=== PATIENT | female | born 1960 | race Caucasian/White ===

== ENCOUNTER → 2018-04-15 | Outpatient (CLI) | payer OTHER ==
[~2018-04-15] MED LIST: ANTIVERT25 MG PO; CEPHALEXIN 500500 M3 PO; IBUPROFEN 400400 M1 PO; LEVOTHYROXINE0.05 MG PO; ONDANSETRON HCL4 M2 PO; TYLENOL COLD &1 EACH PO; ZANTAC 150MG T150 MG PO
== END ==
LOC: M.RAD 14:35
DX: Z12.31 Encounter for screening mammogram for malignant neoplasm of breast (principal); M85.89 Other specified disorders of bone density and structure, multiple sites; E03.9 Hypothyroidism, unspecified; Z78.0 Asymptomatic menopausal state

== ENCOUNTER → 2018-04-22 | Outpatient (CLI) | payer OTHER | LOC: M.CT 13:53 | DX: Z13.6 Encounter for screening for cardiovascular disorders (principal) ==

== ENCOUNTER 2019-04-21 21:57 | Emergency (ER) | payer OTHER ==
[~2019-04-21] VITALS: Ht 160 cm; Wt 77.1 kg
[2019-04-21] MEDS ORDERED: PRILOSEC OTC20 MG PO (22:08)
[2019-04-21] MEDS ORDERED: ZPAK PO (22:08)
[2019-04-21] MEDS ORDERED: EFFEXOR XR37.5 MG PO (22:10)
[2019-04-21 22:37] LABS: INFLUENZA A ANTIGEN Negative (Negative); INFLUENZA B ANTIGEN Negative (Negative)
[2019-04-21 22:45] LABS: ABSOLUTE LYMPHOCYTES 1.7 thou/uL (0.8-5.3); ABSOLUTE MONOCYTES 0.4 thou/uL (0.0-1.2); BASOPHILS 0.7 %; EOSINOPHILS 0.5 %; HEMATOCRIT 36.7 % (37.0-47.0); HEMOGLOBIN 12.8 gm/dL (12.0-15.0); LYMPHOCYTES 41.3 %; MCH 29.8 pg (26.0-34.0); MCV 85.2 fL (80.0-100.0); MPV 9.1 fl. (7.2-11.1); NUCLEATED RBCS 0 /100WBC; PLATELET COUNT* 181 thou/uL (150-400); POLYS 48.5 %; RBC 4.31 mil/uL (4.20-5.00)
[2019-04-21 22:51] LABS: CALCIUM 8.8 mg/dL (8.5-10.1); CREATININE 0.6 mg/dL (0.6-1.3); POTASSIUM 3.7 mmol/L (3.5-5.1)
[2019-04-21 22:55] LABS: ALBUMIN 3.5 g/dL (3.4-5.0); TOTAL BILIRUBIN 0.5 mg/dL (<0.1-1.0); TOTAL PROTEIN 7.5 g/dL (6.4-8.2)
[2019-04-22 00:26] VITALS: BP 155/71
== END 2019-04-22 00:27 | disposition home or self-care (01) ==
LOC: M.ERS 21:57
PROVIDERS: Physician Assistant
DX: J06.9 Acute upper respiratory infection, unspecified (principal); R11.2 Nausea with vomiting, unspecified; M19.90 Unspecified osteoarthritis, unspecified site; Z90.710 Acquired absence of both cervix and uterus; Z88.5 Allergy status to narcotic agent; Z88.7 Allergy status to serum and vaccine

== ENCOUNTER → 2020-02-07 | Outpatient (CLI) | payer OTHER ==
[~2020-02-07] MED LIST changes: +EFFEXOR XR37.5 MG PO; +PRILOSEC OTC20 MG PO; +ZPAK PO
== END ==
LOC: M.RAD 14:30
PROVIDERS: ATTEND Family Medicine
DX: Z12.31 Encounter for screening mammogram for malignant neoplasm of breast (principal)

== ENCOUNTER → 2021-05-03 | Outpatient (CLI) | payer OTHER | LOC: M.RAD 10:00 | PROVIDERS: ATTEND Family Medicine | DX: Z12.31 Encounter for screening mammogram for malignant neoplasm of breast (principal); N63.11 Unspecified lump in the right breast, upper outer quadrant ==

== ENCOUNTER → 2021-05-18 | Outpatient (CLI) | payer OTHER | LOC: M.RAD 05-07 15:30 | PROVIDERS: ATTEND Family Medicine | DX: N63.11 Unspecified lump in the right breast, upper outer quadrant (principal) ==